=== PATIENT | female | born 1945 | race Caucasian/White ===

== ENCOUNTER 2019-06-28 05:38 | Inpatient (IN) | payer MEDICARE, BC ==
[2019-06-19 15:58] LABS: BASOPHILS % (AUTO) 0.7 % (0-1); EOSINOPHILS # (AUTO) 0.1 X10'3 (0-0.9); EOSINOPHILS % (AUTO) 1.8 % (0-6); LYMPHOCYTES # (AUTO) 1.9 X10'3 (1.1-4.8); LYMPHOCYTES % (AUTO) 33.3 % (21-51); MEAN CORPUSCULAR HEMOGLOBIN 32.6 PG (27.0-31.0); MEAN CORPUSCULAR HGB CONC 34.5 g/dL (33.0-36.5); MEAN CORPUSCULAR VOLUME 94.3 FL (78-98); MEAN PLATELET VOLUME 6.2 FL (7.4-10.4); MONOCYTES # (AUTO) 0.5 X10'3 (0-0.9); MONOCYTES % (AUTO) 8.7 % (2-12); NEUTROPHILS # (AUTO) 3.2 X10'3 (1.8-7.7); NEUTROPHILS % (AUTO) 55.5 % (42-75); PRE OP HEMATOCRIT 40.8 % (35.0-45.0); PRE OP HEMOGLOBIN 14.1 g/dL (12.0-16.0); PRE OP PLATELET COUNT 300 X10'3 (140-440); RED BLOOD COUNT 4.33 X10'6 (4.20-5.60); RED CELL DISTRIBUTION WIDTH 12.7 % (11.5-14.5)
[2019-06-19 16:17] LABS: PRE OP PROTIME 10.5 SECONDS (9.0-12.0)
[2019-06-19 16:22] LABS: ALBUMIN 3.5 G/DL (3.4-5.0); ALKALINE PHOSPHATASE 82 IU/L (46-116); BLOOD UREA NITROGEN 18 MG/DL (7-18); CHLORIDE 104 MMOL/L (99-107); PRE OP ALT 21 U/L (30-65); PRE OP ANION GAP 5 (8-16); PRE OP AST 18 U/L (10-37); PRE OP BILIRUB, TOTAL 0.4 MG/DL (0.0-1.0); PRE OP GLUCOSE 120 MG/DL (70-104); PRE OP POTASSIUM 3.7 MMOL/L (3.4-5.1); PRE OP SODIUM 142 MMOL/L (135-145); TOTAL CARBON DIOXIDE 32.7 MMOL/L (24-32); TOTAL PROTEIN 7.1 G/DL (6.4-8.2); eGFR 54 ML/MIN
[~2019-06-28] VITALS: Ht 157.5 cm; Wt 57.1 kg
[2019-06-28] VITALS (17 sets, daily range): BP systolic 102–164; BP diastolic 35–78
[~2019-06-28 05:38] MED LIST: ASPI-611 PO; CALC-103 PO; FLAX1CAP4 PO; FLUT16SP2 BOTHNARES; FOLI0.4T14 PO; GLUC-133 PO; HYDR-3965 PO; LACT1CAP65 PO; LEVO75TA56 PO; LOSA1TAB36 PO; MAGN400T28 PO; METO25TA6 PO; MULT-227 PO; OMEP20CA11 PO; PSYL822P20 PO
[2019-06-28] MEDS ORDERED: ringers solution, lacted 1,000 ML IV SCH ×2 (06:00→08:49)
[2019-06-28] MEDS ORDERED: famotidine 20mg tablet PO ONE (06:00)
[2019-06-28] MEDS ORDERED: vancomycin/NS 1 GM ADD-VANTAGE 250 ML X 1 DOSE IV ONE (06:00)
[2019-06-28] MEDS ORDERED: cefazolin/dext.iso 2gm/100ml 100 ML IV ONE (06:00)
[2019-06-28] MEDS ORDERED: DOCUMENT DATE & TIME OF BETA-BLOCKER PO ONE (06:00)
[2019-06-28] MEDS ORDERED: ketorolac trometh. 30mg/ml inj. ONE (07:00)
[2019-06-28] MEDS ORDERED: ROPIVAcaine 0.5% (5mg/ml) 30ml vial ONE ×2 (07:01→07:46)
[2019-06-28] MEDS ORDERED: tranexamic acid inj. 570 MG in normal saline 100ml IV soln 100 ML IV ONE ×5 (07:25→13:30)
[2019-06-28] MEDS ORDERED: ondansetron/PF 4mg/2ml inj ONE ×2 (07:44→08:24)
[2019-06-28] MEDS ORDERED: sevoflurane 250ml liquid IH ONE (07:44)
[2019-06-28] MEDS ORDERED: fentaNYL/PF 50MCG/1 ML 2ML syringe ONE (07:48)
[2019-06-28] MEDS ORDERED: midazolam 2 mg/2 ml injection ONE (07:49)
[2019-06-28] MEDS ORDERED: dexamethasone sod phosphate 4mg/ml inj. ONE (07:52)
[2019-06-28] MEDS ORDERED: LIDOcaine 2% (20mg/ml) 5ml vial ONE (07:52)
[2019-06-28] MEDS ORDERED: propofol inj 20 ML IV ONE (07:52)
[2019-06-28] MEDS ORDERED: ePHEDrine 50MG/ML INJ. ONE (08:23)
[2019-06-28] MEDS ORDERED: ROPIVAcaine 0.2%/PF PAIN PUMP 400 ML IJ SCH (08:49)
[2019-06-28] MEDS ORDERED: enalaprilat dihydrate 2.5mg/2ml vial IV PRN (08:50)
[2019-06-28] MEDS ORDERED: morphine 4 MG/ML inj SYRINge IV PRN ×2 (08:50)
[2019-06-28] MEDS ORDERED: fentaNYL/PF 50MCG/1 ML 2ML syringe IV PRN ×2 (08:50)
[2019-06-28] MEDS ORDERED: hydrALAZINE 20mg/ml inj. IV PRN (08:50)
[2019-06-28] MEDS ORDERED: ondansetron/PF 4mg/2ml inj IV PRN ×2 (08:50→10:30)
--- NOTE | 2019-06-28 10:05 | NUR ---
Received from OR via ORTHO BED WITH [facility] , accompanied by Anesthesiologist NATASHA and report given by Anesthesiolgist. PATIENT WITH 18G PIV IN RIGHT UE AND SLING TO LEFT. DRESSING TO ANTERIOR LEFT SHOULDER IS CDI. NO DRAINAGE. + CSM TO HAND AND FINGERS. + CAP REFILL. NERVE BLOCK CATHETER ON RIGHT SIDE OF NECK. PATIENT SCDS DONNED. VSS. GLASSES IN A CONTAINER HANGING FROM TRAPEZE. DENIES PAIN, VSS. SPOUSE INVITED IN SHORTLY AFTER ARRIVAL. Addendum: 06/28/19 at 1027 by Geovanni Calle RN, RN Amended: Links added.
[2019-06-28] MEDS ORDERED: bisacodyl 10mg suppository rectal RC PRN (10:30)
[2019-06-28] MEDS ORDERED: magnesium hydroxide 30ml (MOM) UD suspension PO PRN (10:30)
[2019-06-28] MEDS ORDERED: diphenhydrAMINE 25mg capsule PO PRN ×2 (10:30)
[2019-06-28] MEDS ORDERED: acetaminophen 325mg tablet PO PRN (10:30)
[2019-06-28] MEDS ORDERED: oxyCODONE IR 5mg (immed. release) tablet PO PRN ×2 (10:30)
[2019-06-28] MEDS ORDERED: HYDROmorphone 1 mg/ml syringe IV PRN (10:30)
[2019-06-28] MEDS ORDERED: HYDROmorphone inj. 0.5 MG/0.5 ML DISP.SYRIN IV PRN (10:30)
[2019-06-28] MEDS: potassium cl 20mEq in 1/2 NS 1,000 ML IV SCH ×2 (15:18→18:35)
[2019-06-28] MEDS: ceFAZolin 1GM/D5W- ADD-VANTAGE 50 ML IV SCH (15:18)
[2019-06-28] MEDS: acetaminophen 325mg tablet PO SCH ×2 (15:19→20:06)
--- NOTE | 2019-06-28 18:06 | NUR ---
Problems reprioritized. Patient report given, questions answered & plan of care reviewed with Pratibha Rodriguez RN.
[2019-06-28] MEDS ORDERED: vancomycin/NS 1 GM ADD-VANTAGE 250 ML IV SCH (20:00)
[2019-06-28] MEDS ORDERED: metoprolol tartrate 25mg tablet PO SCH (20:00)
[2019-06-28] MEDS ORDERED: psyllium seed 3.4 gm packet PO SCH (21:00)
[2019-06-28] MEDS ORDERED: sennosides 8.6mg tablet PO SCH (21:00)
[2019-06-29] MEDS: ceFAZolin 1GM/D5W- ADD-VANTAGE 50 ML IV SCH (00:02)
[2019-06-29] MEDS: acetaminophen 325mg tablet PO SCH ×2 (01:25→07:30)
[2019-06-29] MEDS: potassium cl 20mEq in 1/2 NS 1,000 ML IV SCH ×2 (01:30→10:30)
[2019-06-29 02:30] VITALS: BP 129/56
[2019-06-29] MEDS ORDERED: levoTHYROXINE 75mcg tablet PO SCH ×2 (05:30→08:00)
[2019-06-29 06:00] VITALS: BP 126/54
--- NOTE | 2019-06-29 06:08 | NUR ---
Problems reprioritized. Patient report given, questions answered & plan of care reviewed with PAULA Gomez.
[2019-06-29 06:20] LABS: BASOPHILS % (AUTO) 0.2 % (0-1); EOSINOPHILS % (AUTO) 0.2 % (0-6); HEMATOCRIT 32.1 % (35.0-45.0); HEMOGLOBIN 11.5 g/dl (12.0-16.0); LYMPHOCYTES # (AUTO) 1.4 X10'3 (1.1-4.8); LYMPHOCYTES % (AUTO) 16.3 % (21-51); MEAN CORPUSCULAR HEMOGLOBIN 33.3 PG (27.0-31.0); MEAN CORPUSCULAR HGB CONC 35.7 g/dL (33.0-36.5); MEAN CORPUSCULAR VOLUME 93.3 FL (78-98); MEAN PLATELET VOLUME 6.5 FL (7.4-10.4); MONOCYTES # (AUTO) 0.9 X10'3 (0-0.9); MONOCYTES % (AUTO) 10.4 % (2-12); NEUTROPHILS # (AUTO) 6.4 X10'3 (1.8-7.7); NEUTROPHILS % (AUTO) 72.9 % (42-75); PLATELET COUNT 231 X10'3 (140-440); RED BLOOD COUNT 3.44 X10'6 (4.20-5.60); RED CELL DISTRIBUTION WIDTH 12.3 % (11.5-14.5); WHITE BLOOD COUNT 8.7 X10'3 (4.5-11.0)
[2019-06-29 06:28] LABS: ANION GAP 9 (8-16); CHLORIDE 109 MMOL/L (99-107); POTASSIUM 4.2 MMOL/L (3.5-5.1); SODIUM 143 MMOL/L (135-145); TOTAL CARBON DIOXIDE 24.9 MMOL/L (24-32)
--- NOTE | 2019-06-29 06:52 | NUR ---
Patient in room ORTHO 4024. I have received report from Pratibha Rodriguez RN and had the opportunity to ask questions and assume patient care.
[2019-06-29] MEDS ORDERED: pantoprazole 40mg Tablet.DR PO SCH (07:30)
[2019-06-29] MEDS ORDERED: non-formulary drug (Gluc 2KCL/Chondr/Coll Hy/Hy Ac (Glucosamine & Chondroitin Cap) 1 EACH) PO SCH (08:00)
[2019-06-29] MEDS ORDERED: HYDROchlorothiazide 12.5mg capsule PO SCH (08:00)
[2019-06-29] MEDS ORDERED: FLAXSEED PO SCH (08:00)
[2019-06-29] MEDS ORDERED: magnesium oxide 400mg tablet PO SCH (08:00)
[2019-06-29] MEDS ORDERED: [UNRECOGNIZED DRUG - OTHER] PO SCH (08:00)
[2019-06-29] MEDS ORDERED: metoprolol tartrate 25mg tablet PO SCH (08:00)
[2019-06-29] MEDS ORDERED: fluticasone nasal spray 16GM bottle NS SCH (08:00)
[2019-06-29] MEDS ORDERED: OMEGA3 PO SCH (08:00)
[2019-06-29] MEDS ORDERED: multivitamins, therapeutics tablet PO SCH (08:00)
[2019-06-29] MEDS ORDERED: folic acid 0.4mg tablet PO SCH (08:00)
[2019-06-29] MEDS ORDERED: FATTY ACID PO SCH (08:00)
[2019-06-29] MEDS ORDERED: lactobacillus rhamnosus 10,000 MMU CELLS/CAPSULE PO SCH (08:00)
[2019-06-29] MEDS ORDERED: calcium carbonate/vitamin D3 tablet PO SCH (08:00)
[2019-06-29] MEDS ORDERED: losartan 50mg tablet PO SCH (08:00)
[2019-06-29] MEDS ORDERED: aspirin 325mg tablet PO SCH (08:30)
[2019-06-29 10:00] VITALS: BP 116/50
--- NOTE | 2019-06-29 10:48 | NUR ---
Patient discharged to home with spouse, all belongings sent with patient. Patient and spouse educated on incision care and on q pump d/c instructions. Patient stable for discharge
[2019-06-29] MEDS ORDERED: psyllium seed 3.4 gm packet PO SCH (14:00)
[2019-06-29] MEDS ORDERED: celeCOXIB 100mg capsule PO SCH (20:00)
[2019-06-30] MEDS ORDERED: acetaminophen 325mg tablet PO PRN (10:30)
== END 2019-06-29 10:50 | disposition home or self-care (01) | DRG 483 ==
LOC: PAS IN 05:38 → EDSTATUS 07:30 → ORTHO 4S 11:00
PROVIDERS: ADMIT Orthopaedic Surgery; ATTEND Orthopaedic Surgery
PROC: 3E0T3BZ Introduction of Anesthetic Agent into Peripheral Nerves and Plexi, Percutaneous Approach (ICD-10-PCS; 2019-06-28)
PROC: 0RRK0JZ Replacement of Left Shoulder Joint with Synthetic Substitute, Open Approach (ICD-10-PCS; principal; 2019-06-28 07:44)
DX: M19.012 Primary osteoarthritis, left shoulder (principal); D62 Acute posthemorrhagic anemia; E03.9 Hypothyroidism, unspecified; I10 Essential (primary) hypertension; K21.9 Gastro-esophageal reflux disease without esophagitis; Z88.2 Allergy status to sulfonamides; Z90.710 Acquired absence of both cervix and uterus; Z72.89 Other problems related to lifestyle; Z79.899 Other long term (current) drug therapy; Z79.82 Long term (current) use of aspirin
CPT/HCPCS: 36415; 80051; 80053; 82948; 84443; 85025; 85610; 85730; 86885; 86900; 86901; 87081; 97110; 97116; 97161; A4565; A4618; A7000; C1713; C1776; G0378; J0690; J1100; J1885; J2001; J2250; J2405; J2704; J2795; J3010; J3370; J3480; J7120